=== PATIENT | female | born 1940 | race Caucasian/White ===

== ENCOUNTER 2019-05-31 11:36 | Outpatient (CLI) | payer MEDICARE ==
--- NOTE | 2019-05-31 12:09 | RAD ---
EXAM: Two views chest PROVIDED CLINICAL HISTORY: None COMPARISON: Cough for greater than one year. FINDINGS: Cardiac silhouette and pulmonary vasculature are within normal limits. The lungs are clear. Mild deg enerative changes are seen in the spine. Vascular calcifications are seen in the thoracic aorta. IMPRESSION: No acute cardiopulmonary process.
== END 2019-05-31 11:37 | disposition home or self-care (01) ==
LOC: NAV RAD 11:36
PROVIDERS: ATTEND Internal Medicine
DX: J30.89 Other allergic rhinitis (principal); I10 Essential (primary) hypertension; R05 Cough
CPT/HCPCS: 71046